=== PATIENT | male | born 1975 | race American Indian/Alaskan Native ===

== ENCOUNTER 2017-10-04 09:51 | Emergency (ER) | payer MEDICAID ==
[2017-10-04 10:06] VITALS: BMI 36.0
--- NOTE | 2017-10-04 10:48 | ED PDOC ---
Arrival/HPI - General Chief Complaint: Back Pain Time Seen by Provider: 10/04/17 10:29 Historian: Patient - History of Present Illness Narrative History of Present Illness (Text): 10/04/17 10:48 This 42 yo male presents to this ED c/o right posterior thigh pain x 2 days. Patient stated pain improved last night, but it returned this morning. Patient is concern for DVT. He denies recent trauma, surgery, blood disorder, CP, SOB, dizziness, calf pain, leg swelling, or abnormal gait. Time/Duration: Other (2 days) Quality: Aching Context: Home Past Medical History - Provider Review Nursing Documentation Reviewed: Yes - Infectious Disease Hx of Infectious Diseases: None - Psychiatric Hx Substance Use: Yes - Anesthesia Hx Anesthesia: No Family/Social History - Physician Review Nursing Documentation Reviewed: Yes Family/Social History: Other (noncontributory) Smoking Status: Current Some Days Smoker Hx Alcohol Use: No Hx Substance Use: Yes Substance used: weed Allergies/Home Meds Allergies/Adverse Reactions: Allergies No Known Allergies Allergy (Verified 10/04/17 10:29) Review of Systems - Review of Systems Constitutional: Normal. absent: Fatigue, Weight Change, Fevers Eyes: Normal ENT: Normal Respiratory: Normal Cardiovascular: Normal Gastrointestinal: Normal Genitourinary Male: Normal Musculoskeletal: Other (right posterior thight pain) Skin: Normal Neurological: Normal Endocrine: Normal Hemo/Lymphatic: Normal Psychiatric: Normal Physical Exam Vital Signs Temp Pulse Resp BP Pulse Ox 10/04/17 09:51 98 F 80 19 130/89 99 Temperature: Afebrile Blood Pressure: Normal Pulse: Regular Respiratory Rate: Normal Appearance: Positive for: Well-Appearing, Non-Toxic, Comfortable Pain Distress: None Mental Status: Positive for: Alert and Oriented X 3 - Systems Exam Head: Present: Atraumatic, Normocephalic Pupils: Present: PERRL Extroacular Muscles: Present: EOMI Conjunctiva: Present: Normal Mouth: Present: Moist Mucous Membranes Neck: Present: Normal Range of Motion Respiratory/Chest: Present: Clear to Auscultation, Good Air Exchange. No: Respiratory Distress, Accessory Muscle Use Cardiovascular: Present: Regular Rate and Rhythm, Normal S1, S2. No: Murmurs Abdomen: No: Tenderness, Distention, Peritoneal Signs Back: Present: Normal Inspection Upper Extremity: Present: Normal Inspection. No: Cyanosis, Edema Lower Extremity: Present: Normal Inspection, NORMAL PULSES, Normal ROM, Tenderness ((+) mild right posterior lower thigh tenderness. No swelling, erythema, ecchymosis, or skin lesion.), Neurovascularly Intact, Capillary Refill < 2 s. No: Edema, CALF TENDERNESS, Jalen's Sign Neurological: Present: GCS=15, CN II-XII Intact, Speech Normal, Normal Cerebellar Funct, Gait Normal. No: Motor Func Grossly Intact, Normal Sensory Function, Norm Deep Tendon Reflexes, Memory Normal Skin: Present: Warm, Dry, Normal Color. No: Rashes Psychiatric: Present: Alert, Oriented x 3, Normal Insight, Normal Concentration Medical Decision Making ED Course and Treatment: 10/04/17 12:27 Re-evaluation. Patient feels better. Discussed results and plan with patient who expresses understanding. All questions answered and there is agreement with the plan to discharge home with instructions. Patient stable for discharge. Return if symptoms persist or worsen. Patient was recommended to f/u dr. Blanchard Orthopedist for revaluation of hamstring pain. Venous Doppler, and x-rays were both negative. To return to emergency if symptoms worsen. Re-evaluation Time: 12:27 Reassessment Condition: Re-examined, Improved - RAD Interpretation Narrative RAD Interpretations (Text): 10/04/17 12:29 Venous doppler right lower extremity: No DVT as per [facility] Hip and femur x-rays: no fx Radiology Orders: 10/04/17 10:29 DUPLEX LOWER EXTRM VEIN RIGHT [US] Stat 10/04/17 10:31 Hip Right [HIP MIN 2V W/ PELVIS RT] [RAD] Stat 10/04/17 10:32 Femur Right [FEMUR MIN 2 VIEWS RT] [RAD] Stat - Medication Orders Current Medication Orders: Discontinued Medications Ketorolac Tromethamine (Toradol) 30 mg IM STAT STA Stop: 10/04/17 10:33 Last Admin: 10/04/17 12:31 Dose: 30 mg LUNA Pain Assessment Document 10/04/17 12:31 NABEEL (Rec: 10/04/17 12:33 NABEEL [facility] [id number] Pain Reassessment Is this a pain reassessment? Yes Presence of Pain Presence of Pain Yes Pain Scale Used Pain Scale Used Numeric Location Left, Right or Bilateral Right Pain Location Body Site Thigh Description Description Sharp Intensity of Pain at present 8 IM Administration Charges Document 10/04/17 12:31 NABEEL (Rec: 10/04/17 12:33 NABEEL [facility] [id number] Injection Site MAR Injection Site Left Arm Charges for Administration # of IM Administrations 1 Disposition/Present on Arrival - Present on Arrival Any Indicators Present on Arrival: No History of DVT/PE: No History of Uncontrolled Diabetes: No Urinary Catheter: No History of Decub. Ulcer: No History Surgical Site Infection Following: None - Disposition Have Diagnosis and Disposition been Completed?: Yes Diagnosis: Thigh pain, musculoskeletal Disposition: HOME/ ROUTINE Disposition Time: 12:44 Patient Plan: Discharge Patient Problems: Current Active Problems Problem Status Onset Thigh pain, musculoskeletal Acute Condition: IMPROVED Discharge Instructions (ExitCare): Muscle and Bone Pain (DC) Additional Instructions: Call private doctor for follow up visit in 1-2 days. Call clinic if you do not have a doctor. Also call Dr. Blanchard, Orthopedist for revaluation of thigh pain. Take medication as instructed. Return to emergency if symptoms worsen. Prescriptions: Famotidine [Pepcid] 40 mg PO DAILY #10 tablet Naproxen 500 mg PO BID PRN #14 tablet PRN Reason: Pain, Severe (8-10) traMADol/Acetaminophen [Ultracet 325 MG-37.5 MG] 1 tab PO Q6H PRN #15 tab PRN Reason: Pain, Severe (8-10) Referrals: PCP,NO [Primary Care Provider] - Follow up with primary Vinny Blanchard MD [Staff Provider] - Follow up with primary [facility] [Outside] - Follow up with primary [facility] [Outside] - Follow up with primary [facility] [Outside] - Follow up with primary Forms: [employer] (Bulgarian), WORK NOTE
[2017-10-04] MEDS ORDERED: cefTRIAXone 1 gm 1 GM/100 ML BAG IVPB STA (12:40)
[2017-10-04 12:53] VITALS: BP 119/87; PULSE 62; RESP 16; TEMP 98.4; O2SAT 97
--- NOTE | 2017-10-04 13:31 | RAD ---
PROCEDURE: Right Hip and pelvis Radiographs. HISTORY: right posterior thigh pain COMPARISON: None. FINDINGS: BONES: Normal. No fracture. JOINTS: Normal. SOFT TISSUES: Normal. OTHER FINDINGS: None. IMPRESSION: Normal radiographs of right hip.
--- NOTE | 2017-10-04 13:32 | RAD ---
PROCEDURE: Right Femur Radiographs. HISTORY: right posterior thigh pain COMPARISON: None. TECHNIQUE: AP and Lateral Radiographs of the right femur. FINDINGS: FEMUR: Normal. No fracture. SOFT TISSUES: Normal. OTHER FINDINGS: None. IMPRESSION: Unremarkable radiographs of the right femur.
--- NOTE | 2017-10-04 17:35 | US ---
PROCEDURE: Right lower extremity venous US HISTORY: Leg pain and swelling. Evaluate for DVT. PHYSICIAN(S): David Miller M.D. TECHNIQUE: Duplex sonography and color-flow Doppler with graded compression were used to evaluate the deep venous system of the right lower extremity. FINDINGS: The visualized deep venous system of the right lower extremity is sonographically normal and compressible. Normal waveforms and augmentation are seen. There is no sonographic evidence for deep venous thrombosis in the visualized segments of the right lower extremity. IMPRESSION: 1. No sonographic evidence for deep venous thrombosis in the visualized segments of the right lower extremity.
== END 2017-10-04 12:57 | disposition home or self-care (01) ==
LOC: MERGE 09:51 → ED 09:51
DX: M79.651 Pain in right thigh (principal)
CPT/HCPCS: 73502; 73552; 93971; 96372; 99282; J1885

== ENCOUNTER 2018-01-07 01:41 | Emergency (ER) | payer MEDICAID, OTHER ==
[2018-01-07 02:11] VITALS: BP 141/81; PULSE 78; RESP 16; TEMP 98.1; O2SAT 99; BMI 44.5
--- NOTE | 2018-01-07 02:17 | ED PDOC ---
Arrival/HPI <Luis Maldonado - Last Filed: 01/07/18 02:30> - General Historian: Patient <Joanne Bernal PA-C - Last Filed: 01/07/18 16:11> - General Time Seen by Provider: 01/07/18 02:11 - History of Present Illness Narrative History of Present Illness (Text): 01/07/18 02:17 Patient is a 42-year-old male with no significant past medical history who reports 2 day history of nasal congestion associated with sore throat. Otherwise : (-) cough, (-) fever, (-) facial pain, (-) SOB, (-) chest pain, (-) N/V/D, (- ) headache, (-) recent travel, (-) sick contacts. (Joanne Bernal PA-C) Past Medical History - Infectious Disease Hx of Infectious Diseases: None - Cardiac Hx Hypertension: No - Pulmonary Hx Asthma: Yes - Neurological Hx Seizures: No - HEENT Hx HEENT Disorder: No - Renal Hx Renal Disorder: No - Endocrine/Metabolic Hx Endocrine Disorders: No - Hematological/Oncological Hx Cancer: No - Integumentary Hx Dermatological Disorder: No - Musculoskeletal/Rheumatological Hx Musculoskeletal Disorders: No - Gastrointestinal Hx Gastrointestinal Disorders: No - Genitourinary/Gynecological Hx Sexually Transmitted Diseases: No - Psychiatric Hx Substance Use: Yes - Anesthesia Hx Anesthesia: No - Suicidal Assessment Feels Threatened In Home Enviroment: No <Joanne Bernal PA-C - Last Filed: 01/07/18 16:11> Family/Social History Family/Social History: No Known Family HX Smoking Status: Never Smoked Hx Alcohol Use: Yes (stopped 3 days ago) Hx Substance Use: Yes Substance used: pcp, cocaine, ecstacy, thc <Joanne Bernal PA-C - Last Filed: 01/07/18 16:11> Allergies/Home Meds <Luis Maldonado - Last Filed: 01/07/18 02:30> <Joanne Bernal PA-C - Last Filed: 01/07/18 16:11> Allergies/Adverse Reactions: Allergies No Known Allergies Allergy (Verified 01/07/18 02:15) Review of Systems - Review of Systems Constitutional: absent: Fatigue, Fevers ENT: Sore Throat, Rhinorrhea, Sinus Congestion Respiratory: absent: SOB, Cough Cardiovascular: Syncope. absent: Chest Pain Gastrointestinal: absent: Abdominal Pain, Nausea, Vomiting Skin: absent: Rash, Pruritis, Skin Lesions Neurological: absent: Headache, Dizziness <Joanne Bernal PA-C - Last Filed: 01/07/18 16:11> Physical Exam Temperature: Afebrile Blood Pressure: Normal Pulse: Regular Respiratory Rate: Normal Appearance: Positive for: Well-Appearing, Non-Toxic, Comfortable Pain Distress: None Mental Status: Positive for: Alert and Oriented X 3 - Systems Exam Head: Present: Atraumatic, Normocephalic, Other (no sinus tenderness) Pupils: Present: PERRL Extroacular Muscles: Present: EOMI Conjunctiva: Present: Normal Mouth: Present: Moist Mucous Membranes Pharnyx: Present: Normal. No: ERYTHEMA, EXUDATE, Peritonsilar Swelling, Uvular Deviation, Strider Nose (Internal): Present: Edematous. No: No Active Bleeding, Epistaxis Neck: Present: Normal Range of Motion. No: Meningeal Signs, Lymphadenopathy Respiratory/Chest: Present: Clear to Auscultation, Good Air Exchange. No: Respiratory Distress, Accessory Muscle Use Cardiovascular: Present: Regular Rate and Rhythm, Normal S1, S2. No: Murmurs Back: Present: Normal Inspection Upper Extremity: Present: Normal Inspection. No: Cyanosis, Edema Lower Extremity: Present: Normal Inspection. No: Edema Neurological: Present: GCS=15, CN II-XII Intact, Speech Normal, Motor Func Grossly Intact, Normal Sensory Function Skin: Present: Warm, Dry, Normal Color. No: Rashes Psychiatric: Present: Alert, Oriented x 3, Normal Insight, Normal Concentration <Joanne Bernal PA-C - Last Filed: 01/07/18 16:11> Vital Signs Temp Pulse Resp BP Pulse Ox 01/07/18 02:10 98.1 F 78 16 141/81 99 Medical Decision Making <Luis Maldonado - Last Filed: 01/07/18 02:30> <Joanne Bernal PA-C - Last Filed: 01/07/18 16:11> ED Course and Treatment: 01/07/18 02:15 Patient medicated with flonase and pseudoped PO. Advised to follow up with primary care physician or referral provided in 1-2 days without fail. Advised to take medication as prescribed. Return to the emergency room at any time for any new or worsening symptoms. Patient states he fully agrees with and understands discharge instructions. States that he agrees with the plan and disposition. Verbalized and repeated discharge instructions and plan. I have given the patient opportunity to ask any additional questions. (Joanne Bernal PA-C) - Medication Orders Current Medication Orders: Discontinued Medications Fluticasone Propionate (Flonase) 2 actuation NS STAT STA Stop: 01/07/18 02:19 Last Admin: 01/07/18 02:37 Dose: 2 actuation Pseudoephedrine HCl (Sudafed Tab) 30 mg PO STAT STA Stop: 01/07/18 02:19 Last Admin: 01/07/18 02:36 Dose: 30 mg - PA / STALLION KEEPER / Resident Statement KAT has reviewed & agrees with the documentation as recorded. <Luis Maldonado - Last Filed: 01/07/18 02:30> - PA / STALLION KEEPER / Resident Statement KAT has reviewed & agrees with the documentation as recorded. <Joanne Bernal PA-C - Last Filed: 01/07/18 16:11> Disposition/Present on Arrival <Luis Maldonado - Last Filed: 01/07/18 02:30> - Present on Arrival Any Indicators Present on Arrival: No History of DVT/PE: No History of Uncontrolled Diabetes: No Urinary Catheter: No History Surgical Site Infection Following: None - Disposition Have Diagnosis and Disposition been Completed?: Yes Disposition Time: 02:15 Patient Plan: Discharge <Joanne Bernal PA-C - Last Filed: 01/07/18 16:11> - Disposition Diagnosis: Rhinitis Disposition: HOME/ ROUTINE Condition: STABLE Discharge Instructions (ExitCare): Cough, Runny Nose, and the Common Cold (DC) Additional Instructions: Thank you for letting us take care of you today. You were treated for rhinitis. The emergency medical care you received today was directed at your acute symptoms. If you were prescribed any medication, please fill it and take as directed. It may take several days for your symptoms to resolve. Return to the Emergency Department if your symptoms worsen, do not improve, or if you have any other problems. Please contact your doctor in 2 days for re-evaluation and follow up / or call one of the physicians/clinics you have been referred to that are listed on the Patient Visit Information form that is included in your discharge packet. Bring any paperwork you were given at discharge with you along with any medications you are taking to your follow up visit. Our treatment cannot replace ongoing medical care by a primary care provider (PCP) outside of the emergency department. Thank you for allowing the [email or web address] team to be part of your care today. Prescriptions: Pseudoephedrine [Sudafed Tab] 30 mg PO Q6H #20 tab Referrals: [facility] [place] [Outside] - Follow up with primary Forms: WORK NOTE
[2018-01-07] MEDS ORDERED: Fluticasone Nasal 50 mcg/Spray NS STA (02:18)
== END 2018-01-07 02:49 | disposition home or self-care (01) ==
LOC: ED 01:41
DX: J31.0 Chronic rhinitis (principal)